=== PATIENT | female | born 1970 | race African-American/Black ===

== ENCOUNTER 2022-09-06 15:22 | Observation (INO) | payer OTHER ==
[2022-09-06] MEDS ORDERED: ONDANSETRON 4 MG/2 ML VIAL ONE (16:05)
[2022-09-06] MEDS ORDERED: MORPHINE 2 MG/ML SYR ONE (16:05)
[2022-09-06 16:15] LABS: Absolute Lymphocytes (CBC) 1.3 K/uL (0.7-4.9); Hematocrit 40.7 % (36.0-45.0); Lymphocytes % 16.6 % (15.3-44.8); MCV 81.7 fL (80-100); RBC Red Blood Cell Count 4.99 M/uL (3.86-4.86)
[2022-09-06 16:20] LABS: Urine Blood Negative (Negative); Urine Glucose Negative (Negative); Urine Protein Negative (Negative)
--- NOTE | 2022-09-06 16:22 | RAD REPORT ---
EXAM DESCRIPTION: Ksenia Single View09/06/2022 4:15 pm CLINICAL HISTORY: Chest pain COMPARISON: none FINDINGS: The lungs appear clear of acute infiltrate. The heart is normal size IMPRESSION: No acute abnormalities displayed
[2022-09-06 16:31] LABS: Protime INR 5.82
[2022-09-06 16:44] LABS: ALT/SGPT 29 U/L (12-78); AST/SGOT 16 U/L (15-37); Albumin 3.1 g/dL (3.4-5.0); Alkaline Phosphatase 84 U/L (45-117); BUN Blood Urea Nitrogen 11 mg/dL (7-18); Bicarbonate 25 mmol/L (21-32); Bilirubin Total 0.5 mg/dL (0.2-1.0); Glomerular Filtration Rate 83 ml/min (=/>90); Glucose Level 177 mg/dL (74-106); NT PRO-BNP 73 pg/mL (<125); Potassium 4.2 mmol/L (3.5-5.1); Protein, Total 7.4 g/dL (6.4-8.2); Sodium Level 138 mmol/L (136-145); Troponin High Sensitivity 4.9 pg/mL (<58.9)
[2022-09-06 16:49] LABS: Bilirubin Direct < 0.1 mg/dL (0-0.2)
--- NOTE | 2022-09-06 19:02 | RAD REPORT ---
EXAM DESCRIPTION: CT - Head Brain Wo Cont - 09/06/2022 6:33 pm CLINICAL HISTORY: Headache COMPARISON: None. TECHNIQUE: Computed axial tomography of the head was obtained. IV contrast was not requested. All CT scans are performed using dose optimization technique as appropriate and may include automated exposure control or mA/KV adjustment according to patient size. FINDINGS: An intracranial bleed is not seen . The ventricles are normal in caliber. No significant hypodense areas within the brain visualized No extra-axial fluid collection is noted. Fluid within the sinuses/ mastoids is not seen. IMPRESSION: No acute intracranial abnormality is seen. If patient's symptoms persist MRI of the bra in would be recommended.
--- NOTE | 2022-09-06 19:06 | RAD REPORT ---
EXAM DESCRIPTION: CT - Chest For Pe Angio - 09/06/2022 6:33 pm CLINICAL HISTORY: Chest pain COMPARISON: None. TECHNIQUE: Dynamically enhanced axial 3 mm thick images of the chest were obtained during administra tion of <100> mL Isovue 370 IV contrast. Coronal and oblique reconstruction images were generated and reviewed. Exam utilizes a protocol for optimal evaluation of pulmonary arterial tree. Maximum intensity projections 3D imaging was utilized All CT scans are performed using dose optimization technique as appropriate and may include automated exposure control or mA/KV adjustment according to patient size. FINDINGS: A pulmonary embolus is not seen. A thoracic aortic aneurysm is not noted. A pleural effusion is not seen. A pericardial effusion is not seen. A lung consolidation is not present. IMPRESSION: Negative for a pulmonary embolism.
--- NOTE | 2022-09-06 19:40 | ER ---
Nurse's Notes [facility] Name: Brian Donato Age: 52 yrs Sex: Female : 1970 Arrival Date: 09/06/2022 Time: 15:31 Bed 23 Private MD: Diagnosis: Chest pain, unspecified;Palpitations Presentation: 09/06 15:31 Chief complaint: EMS states: Left sided chest pain, SOB, and palpitations that started hb while cooking 45 mins ago. Pain was partially relieved after Nitro SL x 1. ASA 324 mg administered SUSPECT ARTIST. Coronavirus screen: At this time, the client does not indicate any symptoms associated with coronavirus-19. Ebola Screen: No symptoms or risks identified at this time. Initial Sepsis Screen: Does the patient meet any 2 criteria? No. Patient's initial sepsis screen is negative. Does the patient have a suspected source of infection? No. Patient's initial sepsis screen is negative. Risk Assessment: Do you want to hurt yourself or someone else? Patient reports no desire to harm self or others. Onset of symptoms was September 06, 2022. 15:31 Method Of Arrival: EMS: [facility] hb 15:31 Acuity: ROX 3 hb Triage Assessment: 15:33 General: Appears in no apparent distress. Behavior is calm, cooperative. Pain: Pain hb currently is 6 out of 10 on a pain scale. EENT: No signs and/or symptoms were reported regarding the EENT system. Neuro: Level of Consciousness is awake, alert, obeys commands, Oriented to person, place, time, situation. Cardiovascular: Patient's skin is warm and dry. Respiratory: Respiratory effort is even, unlabored, Respiratory pattern is regular, symmetrical. GI: No signs and/or symptoms were reported involving the gastrointestinal system. : No signs and/or symptoms were reported regarding the genitourinary system. Derm: Skin is pink, warm \T\ dry. Musculoskeletal: No signs and/or symptoms reported regarding the musculoskeletal system. Historical: - Allergies: 15:33 No Known Allergies; hb - Immunization history:: Adult Immunizations up to date. - Social history:: Smoking status: Patient denies any tobacco usage or history of. Patient/guardian denies using alcohol, street drugs. Screenin:34 Abuse screen: Denies threats or abuse. Denies injuries from another. Nutritional hb screening: No deficits noted. Tuberculosis screening: No symptoms or risk factors identified. Fall Risk None identified. Assessment: 15:34 General: See triage assessment. hb 16:52 Reassessment: Patient appears in no apparent distress at this time. Patient and/or hb family updated on plan of care and expected duration. Pain level reassessed. Patient is alert, oriented x 3, equal unlabored respirations, skin warm/dry/pink. 17:59 Reassessment: Patient appears in no apparent distress at this time. Patient and/or hb family updated on plan of care and expected duration. Pain level reassessed. Patient is alert, oriented x 3, equal unlabored respirations, skin warm/dry/pink. 19:14 Reassessment: Patient appears in no apparent distress at this time. Patient and/or hb family updated on plan of care and expected duration. Pain level reassessed. Patient is alert, oriented x 3, equal unlabored respirations, skin warm/dry/pink. 19:40 Reassessment: Patient appears in no apparent distress at this time. Patient and/or hb family updated on plan of care and expected duration. Pain level reassessed. Patient is alert, oriented x 3, equal unlabored respirations, skin warm/dry/pink. Vital Signs: 15:31 BP 123 / 97; Pulse 81; Resp 16; Temp 97.8; Pulse Ox 100% on R/A; Weight 83.91 kg; hb Height 5 ft. 9 in. (175.26 cm); Pain 6/10; 16:30 BP 124 / 84; Pulse 83; Resp 16; Pulse Ox 99% ; hb 17:59 BP 125 / 65; Pulse 80; Resp 15; Pulse Ox 99% on R/A; hb 19:14 BP 125 / 94; Pulse 63; Resp 17; Pulse Ox 99% on R/A; Pain 4/10; hb 15:31 Body Mass Index 27.32 (83.91 kg, 175.26 cm) hb ED Course: 15:31 Patient arrived in ED. hb 15:31 Dee Cortes, RN is Primary Nurse. hb 15:33 Onesimo Banks PA is PHCP. cp 15:33 Onesimo Hutchison MD is Attending Physician. cp 15:33 Triage completed. hb 15:34 Arm band placed on. hb 15:34 Patient has correct armband on for positive identification. hb 16:05 Maintain EMS IV. Dressing intact. Site clean \T\ dry. Gauge \T\ site: 20g LAC. no blood hb return, flushes easily . 16:14 Initial lab(s) drawn, by me, sent to lab. hb 16:17 XRAY Chest (1 view) In Process Unspecified. EDMS 17:53 LAB Add On Sent. hb 18:35 CT Chest For PE Angio In Process Unspecified. EDMS 18:35 CT Head Brain wo Cont In Process Unspecified. EDMS 19:38 Rebel Estrella is Hospitalizing Provider. cp 20:12 US Extremity Venous W Compression Alessandro In Process Unspecified. EDMS 23:17 No provider procedures requiring assistance completed. Patient admitted, IV remains in vc1 place. Administered Medications: 16:14 Drug: Zofran (Ondansetron) 4 mg Route: IVP; Site: left antecubital; hb 17:00 Follow up: Response: No adverse reaction hb 16:14 Drug: morphine 2 mg Route: IVP; Infused Over: 4 mins; Site: left antecubital; hb 17:00 Follow up: Response: No adverse reaction hb Medication: 15:34 VIS not applicable for this client. hb Outcome: 19:39 Decision to Hospitalize by Provider. cp 23:18 Admitted to Tele [facility] via [facility], room 421, with chart. vc1 23:18 Condition: good 23:18 Instructed on the need for admit. 23:18 Patient left the ED. vc1 Signatures: Dispatcher [employer] EDDC Onesimo Banks PA PA cp Baxter, Heather, RN RN hb Sulema Andrews RN RN vc1 Corrections: (The following items were deleted from the chart) 15:33 15:33 Allergies: Aspirin; hb hb 19:17 19:14 BP 122 / 68; Pulse 63bpm; Resp 17bpm; Pulse Ox 99% RA; Pain 4/10; hb hb 19:40 19:40 Reassessment: Patient appears in no apparent distress at this time. hb hb
--- NOTE | 2022-09-06 19:40 | EDPHYS ---
Physician Documentation [facility] Name: Brian Donato Age: 52 yrs Sex: Female : 1970 Arrival Date: 09/06/2022 Time: 15:31 Bed 23 Private MD: ED Physician Onesimo Hutchison HPI: 09/06 15:39 This 52 yrs old Female presents to ER via EMS with complaints of Chest Pain, cp Palpitations. 15:39 The patient or guardian reports chest pain that is located primarily in the anterior cp chest wall, left. 15:39 Onset: today. The patient presents with a history of heart racing. Context: The cp symptoms occur with light activity, while cooking. Onset: The symptoms/episode began/occurred today, less than 1 hour ago. Duration: The patient or guardian reports a single episode, that is still ongoing, but improving. The pain does not radiate. 15:39 Associated signs and symptoms: Pertinent negatives: cough, fever, lightheadedness, SOB, cp syncope, unusual stressors. The chest pain is described as sharp. 15:40 Patient given sublingual nitro and ASA by EMS with improvement of pain. cp Historical: - Allergies: 15:33 No Known Allergies; hb - Immunization history:: Adult Immunizations up to date. - Social history:: Smoking status: Patient denies any tobacco usage or history of. Patient/guardian denies using alcohol, street drugs. ROS: 15:45 Constitutional: Negative for body aches, chills, fever, poor PO intake. cp 15:45 Eyes: Negative for injury, pain, redness, and discharge. cp 15:45 ENT: Negative for drainage from ear(s), ear pain, sore throat, difficulty swallowing, difficulty handling secretions. 15:45 Cardiovascular: Positive for chest pain, palpitations, Negative for edema. 15:45 Respiratory: Negative for cough, shortness of breath, wheezing. 15:45 Abdomen/GI: Positive for nausea, Negative for abdominal pain, vomiting, diarrhea, constipation. 15:45 Neuro: Positive for dizziness, Negative for altered mental status, weakness. Exam: 15:50 Constitutional: The patient appears in no acute distress, alert, awake, cp non-diaphoretic, non-toxic, well developed, well nourished. 15:50 Head/Face: Normocephalic, atraumatic. cp 15:50 Eyes: Periorbital structures: appear normal, Pupils: equal, round, and reactive to light and accomodation, Extraocular movements: intact throughout, Conjunctiva: normal, no exudate, no injection, Sclera: no appreciated abnormality, Lids and lashes: appear normal, bilaterally. 15:50 ENT: External ear(s): are unremarkable, Nose: is normal, Mouth: Lips: moist, Oral mucosa: pink and intact, moist, Posterior pharynx: Airway: no evidence of obstruction, patent. 15:50 Neck: ROM/movement: is normal, is supple, without pain, no range of motions limitations, no nuchal rigidity. 15:50 Chest/axilla: Inspection: normal. 15:50 Cardiovascular: Rate: normal, Rhythm: regular, Edema: is not appreciated, JVD: is not appreciated. 15:50 Respiratory: the patient does not display signs of respiratory distress, Respirations: normal, no use of accessory muscles, no retractions, labored breathing, is not present, Breath sounds: are clear throughout, no decreased breath sounds, no stridor, no wheezing. 15:50 Abdomen/GI: Inspection: abdomen appears normal, Bowel sounds: active, all quadrants, Palpation: abdomen is soft and non-tender, in all quadrants. 15:50 Back: pain, is absent, ROM is normal. 15:50 Neuro: Orientation: to person, place \T\ time. Mentation: is normal, Cerebellar function: is grossly normal, Motor: moves all fours, strength is normal, Sensation: is normal. 16:22 ECG was reviewed by the Attending Physician. cp Vital Signs: 15:31 BP 123 / 97; Pulse 81; Resp 16; Temp 97.8; Pulse Ox 100% on R/A; Weight 83.91 kg; hb Height 5 ft. 9 in. (175.26 cm); Pain 6/10; 16:30 BP 124 / 84; Pulse 83; Resp 16; Pulse Ox 99% ; hb 17:59 BP 125 / 65; Pulse 80; Resp 15; Pulse Ox 99% on R/A; hb 19:14 BP 125 / 94; Pulse 63; Resp 17; Pulse Ox 99% on R/A; Pain 4/10; hb 15:31 Body Mass Index 27.32 (83.91 kg, 175.26 cm) hb MDM: 15:35 Patient medically screened. khadra 20:00 The patient was not given aspirin in the Emergency Department. Administered by EMS. cp 20:00 Data reviewed: vital signs, nurses notes, lab test result(s), EKG, radiologic studies, cp CT scan, plain films. Test interpretation: by ED physician or midlevel provider: ECG, plain radiologic studies. Physician consultation: Raisaandrez Masters PA-C was called at 19:30, was contacted at 19:30, regarding admission, to the telemetry unit. patient's condition. 09/06 15:40 Order name: Basic Metabolic Panel; Complete Time: 16:56 cp 09/06 16:56 Interpretation: Normal except: GLUC 177; GFR 83; CA 8.1. cp 09/06 15:40 Order name: CBC with Diff; Complete Time: 16:37 cp 09/06 16:42 Interpretation: Normal except: RBC 4.99; MARTIN% 76.6. cp 09/06 15:40 Order name: LFT's; Complete Time: 16:56 cp 09/06 16:56 Interpretation: Normal except: ALB 3.1; GLOB 4.3; A/G 0.7. cp 09/06 15:40 Order name: Magnesium; Complete Time: 16:56 cp 09/06 15:40 Order name: NT PRO-BNP; Complete Time: 16:56 cp 09/06 15:40 Order name: PT-INR; Complete Time: 16:37 cp 09/06 16:38 Interpretation: Reviewed. cp 09/06 15:40 Order name: Troponin HS; Complete Time: 16:56 cp 09/06 16:20 Order name: Urine Dipstick-Ancillary; Complete Time: 16:37 EDMS 09/06 16:23 Order name: Urine --Ancillary (enter results); Complete Time: 19:08 em1 09/06 16:58 Order name: LAB Add On cp 09/06 16:58 Order name: D-Dimer; Complete Time: 17:16 cp 09/06 17:16 Interpretation: Abnormal: D-DIMER 978. cp 09/06 18:42 Order name: PT-INR: repeat; Complete Time: 20:23 cp 09/06 18:42 Order name: AMMONIA; Complete Time: 20:23 cp 09/06 19:25 Order name: Troponin High Sensitivity; Complete Time: 20:43 cp 09/06 15:40 Order name: XRAY Chest (1 view); Complete Time: 16:37 cp 09/06 15:40 Order name: EKG; Complete Time: 15:41 cp 09/06 15:40 Order name: Cardiac monitoring; Complete Time: 16:01 cp 09/06 15:40 Order name: EKG - Nurse/Tech; Complete Time: 16:19 cp 09/06 15:40 Order name: IV Saline Lock; Complete Time: 16:01 cp 09/06 15:40 Order name: Labs collected and sent; Complete Time: 16:01 cp 09/06 15:40 Order name: O2 Per Protocol; Complete Time: 16:01 cp 09/06 15:40 Order name: O2 Sat Monitoring; Complete Time: 16:01 09/06 15:40 Order name: Urine Dipstick-Ancillary (obtain specimen); Complete Time: 16:19 cp 09/06 15:40 Order name: Urine Test (obtain specimen); Complete Time: 16:19 cp 09/06 17:16 Order name: CT Chest For PE Angio; Complete Time: 19:08 cp 09/06 19:09 Interpretation: Report reviewed. 09/06 17:16 Order name: CT Head Brain wo Cont; Complete Time: 19:08 09/06 19:09 Interpretation: Report reviewed. 09/06 19:30 Order name: US Extremity Venous W Compression Alessandro; Complete Time: 20:43 cp 09/06 20:21 Order name: SARS RAPID; Complete Time: 21:53 sb4 EC:22 Rate is 77 beats/min. Rhythm is regular. [place] interval is normal. QRS interval is normal. cp QT interval is normal. T waves are Inverted in lead aVR. Interpreted by me. Reviewed by me. Administered Medications: 16:14 Drug: Zofran (Ondansetron) 4 mg Route: IVP; Site: left antecubital; hb 17:00 Follow up: Response: No adverse reaction hb 16:14 Drug: morphine 2 mg Route: IVP; Infused Over: 4 mins; Site: left antecubital; hb 17:00 Follow up: Response: No adverse reaction hb Disposition Summary: 09/06/22 19:39 Hospitalization Ordered Hospitalization Status: Observation cp Provider: Rebel Estrella cp Location: Telemetry/MedSurg (observation) cp Condition: Stable cp Problem: new cp Symptoms: have improved cp Bed/Room Type: Standard cp Room Assignment: 421(09/06/22 21:53) bb Diagnosis - Chest pain, unspecified cp - Palpitations cp Forms: - Medication Reconciliation Form cp - SBAR form cp Addendum: 09/11/2022 04:04 Co-signature as Attending Physician, Onesimo Hutchison MD I agree with the assessment and c yan plan of care. Signatures: Dispatcher [employer] EDAL Onesimo Hutchison MD MD cha Ballard, Brenda, RN RN bb Onesimo Banks PA PA cp Baxter, Heather, RN RN Raisa Maya PA-C PA-C sb4 Corrections: (The following items were deleted from the chart) 09/06 15:33 15:33 Allergies: Aspirin; hb hb 16:56 16:56 Normal except: GLUC 177; GFR 83. cp cp 21:53 19:39 cp bb 09/07 18:17 09/06 15:39 Context: The symptoms occur at rest, cp cp 09/07 18:17 09/06 15:39 Onset: The symptoms/episode began/occurred today, cp cp 09/07 18:20 09/06 20:00 Physician consultation: Raisa Masters PA-C was called at 19:55, was cp contacted at 19:55, regarding admission, to the telemetry unit. patient's condition, cp
[2022-09-06 20:03] LABS: Protime INR 0.98
--- NOTE | 2022-09-06 20:24 | RAD REPORT ---
EXAM DESCRIPTION: USExtrem Venous W Compress Bil09/06/2022 8:10 pm CLINICAL HISTORY: Leg pain COMPARISON: none FINDINGS: The common femoral, superficial femoral, popliteal and posterior tibial veins bilaterally are compressible and demonstrate augmentation. Doppler demonstrates good flow. Grayscale, color and spectral analysis performed on all vessels IMPRESSION: No evidence of deep venous thrombosis involving either lower extremity.
--- NOTE | 2022-09-06 20:43 | P.HP ---
Certification for Inpatient Patient admitted to: Observation With expected LOS: <2 Midnights Patient will require the following post-hospital care: None Practitioner: I am a practitioner with admitting privileges, knowledge of patient current condition, hospital course, and medical plan of care. Services: Services provided to patient in accordance with Admission requirements found in Title 42 Section 412.3 of the Code of Federal Regulations Patient History Date of Service: 09/06/22 Reason for admission: Chest Pain History of Present Illness: Patient is a 52-year-old female with history of hypertension and occassional palpitations who presented to the ED with complaints of chest pain, palpitations, and dizziness that began about 1 hour prior to arrival. Patient reports that she was cooking dinner when she noticed her chest started to hurt under her left breast and started experiencing palpitations and felt very overheated. He took her metoprolol which did not improve her symptoms. She was taken to the hospital via EMS, who gave her aspirin and nitro in route. Symptoms were moderately improved upon arrival to the ED. 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 Labs within normal limits except for a D-dimer of 978. Troponin and 4 hour repeat WNL. EKG showed NSR. Ultrasound negative for DVT and chest CT angio negative for PE. ED provider wishes to admit patient for observation for ACS rule out. Allergies No Known Allergies Allergy (Unverified 09/06/22 20:31) Home medications list reviewed: Yes - Past Medical/Surgical History Diabetic: No -: Hypertension -: Palpitations -: Chronic back pain -: -: Right shoulder Psychosocial/ Personal History: Patient is . Lives at home with her . - Family History Father -: Heart disease, Diabetes - Social History Smoking Status: Never smoker Alcohol use: Yes CD- Drugs: No Caffeine use: Yes Place of Residence: Home Review of Systems General: Sweats Cardiovascular: Chest Pain, Palpitations, Light Headedness Musculoskeletal: Arm Pain Physical Examination - Physical Exam General: Alert, In no apparent distress HEENT: Atraumatic, PERRLA, EOMI, Sclerae nonicteric Neck: Supple, 2+ carotid pulse no bruit, No LAD, Without JVD or thyroid abn ormality Respiratory: Clear to auscultation bilaterally, Normal air movement Cardiovascular: Regular rate/rhythm, Normal S1 S2 Gastrointestinal: Normal bowel sounds, No tenderness Musculoskeletal: No tenderness Integumentary: No rashes Neurological: Normal speech, Normal strength at 5/5 x4 extr, Normal tone, Normal affect - Studies Laboratory Data (last 24 hrs) 09/06/22 19:50: PT 10.8, INR 0.98 09/06/22 16:00: PT 64.0 H, INR 5.82 H* 09/06/22 16:00: WBC 7.60, Hgb 13.5, Hct 40.7, Plt Count 153 09/06/22 16:00: Sodium 138, Potassium 4.2, BUN 11, Creatinine 0.84, Glucose 177 H, Magnesium 2.0, Total Bilirubin 0.5, AST 16, ALT 29, Alkaline Phosphatase 84 Assessment and Plan - Problems (Diagnosis) (1) Chest pain Current Visit: Yes Status: Acute Qualifiers: Chest pain type: unspecified Qualified Code(s): R07.9 - Chest pain, unspecified (2) Hypertension Current Visit: Yes Status: Chronic (3) Elevated d-dimer Current Visit: Yes Status: Acute - Plan -2 initial troponins negative. Will check 1 more -Cardiology consult. Monitor on telemetry -Aspirin and atorvastatin daily -Lipid panel, TSH, and A1C ordered for morning (no history of diabetes but BS elevated and +family history) -Monitor and replete electrolytes per protocol -Reconcile and continue home medications -Lovenox for VTE prophylaxis -Full code Discharge Plan: Home Plan to discharge in: 24 Hours - Advance Directives Does patient have a Living Will: No Does patient have a Durable POA for Healthcare: No - Code Status/Comfort Care Code Status Assessed: Yes (Full) Critical Care: No Time Spent Managing Pts Care (In Minutes): 50
[2022-09-06] MEDS ORDERED: NITROGLYCERIN 0.4 MG/TAB SL PRN (20:47)
[2022-09-06] MEDS ORDERED: ACETAMINOPHEN 500 MG TAB PO PRN (20:47)
[2022-09-06] MEDS ORDERED: ONDANSETRON 4 MG/2 ML VIAL IV PRN (20:47)
[2022-09-06 20:50] VITALS: BMI 27.3
[2022-09-06] MEDS ORDERED: ATORVASTATIN 40 MG TAB PO SCH (21:00)
[2022-09-06 21:48] LABS: SARS-CoV-2 Antigen Rapid Res Negative (Negative)
[2022-09-06] MEDS ORDERED: ATORVASTATIN 20 MG TAB ONE (22:26)
[2022-09-06] MEDS ORDERED: ACETAMINOPHEN 500 MG TAB ONE (22:26)
[2022-09-07 04:50] LABS: Absolute Lymphocytes (CBC) 1.9 K/uL (0.7-4.9); Hematocrit 37.7 % (36.0-45.0); Lymphocytes % 25.3 % (15.3-44.8); MCV 82.6 fL (80-100); MPV 10.2 fL (7.6-11.3); RBC Red Blood Cell Count 4.57 M/uL (3.86-4.86)
[2022-09-07 05:15] LABS: Magnesium 2.2 mg/dL (1.8-2.4); Phosphorus 4.3 mg/dL (2.5-4.9); Thyroid Stimulating Hormone 0.704 uIU/mL (0.360-3.740); Troponin High Sensitivity 5.8 pg/mL (<58.9)
[2022-09-07 08:21] VITALS: BP 110/79; TEMP 97.6; O2SAT 100
[2022-09-07] MEDS ORDERED: ENOXAPARIN 40 MG/0.4 ML SQ SCH (09:00)
[2022-09-07] MEDS ORDERED: ASPIRIN EC 81 MG TAB PO SCH (09:00)
--- NOTE | 2022-09-07 10:24 | P.DS ---
Admission Date: 09/06/22 Discharge Date: 09/07/22 Disposition: ROUTINE DISCHARGE Discharge Condition: FAIR Reason for Admission: Chest Pain - Problems (1) Chest pain Current Visit: Yes Status: Acute Qualifiers: Chest pain type: unspecified Qualified Code(s): R07.9 - Chest pain, unspecified (2) Elevated d-dimer Current Visit: Yes Status: Acute (3) Hypertension Current Visit: Yes Status: Chronic Brief History of Present Illness: Patient is a 52-year-old female with history of hypertension and occassional palpitations who presented to the ED with complaints of chest pain, palpitations, and dizziness that began about 1 hour prior to arrival. Patient reports that she was cooking dinner when she noticed her chest started to hurt under her left breast and started experiencing palpitations and felt very overheated. He took her metoprolol which did not improve her symptoms. She was taken to the hospital via EMS, who gave her aspirin and nitro in route. Symptoms were moderately improved upon arrival to the ED. 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 Labs within normal limits except for a D-dimer of 978. Troponin and 4 hour repeat WNL. EKG showed NSR. Ultrasound negative for DVT and chest CT angio negative for PE. She was placed under observation for ACS rule out. Hospital Course: Troponin trended negative. Patient was asymptomatic during the hospital stay. ACS ruled out. She was seen by cardiology-Dr. Antonio for follow-up with her as outpatient for arrangement for stress test. Vitals are stable. Total cholesterol and LDL moderately elevated. Discussed exercise and diet modification and recommended aspirin daily. Vital Signs/Physical Exam: Temp Pulse Resp BP Pulse Ox 97.6 F 86 16 110/79 100 09/07/22 08:00 09/07/22 08:00 09/07/22 08:00 09/07/22 08:00 09/07/22 08:00 General: Alert, In no apparent distress, Oriented x3 Neck: Supple, JVD not distended Respiratory: Clear to auscultation bilaterally, Normal air movement Cardiovascular: No edema, Regular rate/rhythm, Normal S1 S2 Gastrointestinal: Soft and benign Musculoskeletal: No swelling Integumentary: No rashes Neurological: Normal strength at 5/5 x4 extr Laboratory Data at Discharge: WBC 7.70 K/uL (4.3-10.9) 09/07/22 03:38 Hgb 12.5 g/dL (12.0-15.0) 09/07/22 03:38 Hct 37.7 % (36.0-45.0) 09/07/22 03:38 Plt Count 138 K/uL (152-406) L 09/07/22 03:38 PT 10.8 SECONDS (9.5-12.5) 09/06/22 19:50 INR 0.98 09/06/22 19:50 Sodium 139 mmol/L (136-145) 09/07/22 03:35 Potassium 4.0 mmol/L (3.5-5.1) 09/07/22 03:35 BUN 14 mg/dL (7-18) 09/07/22 03:35 Creatinine 0.83 mg/dL (0.55-1.3) 09/07/22 03:35 Glucose 105 mg/dL (74-106) 09/07/22 03:35 Phosphorus 4.3 mg/dL (2.5-4.9) 09/07/22 03:35 Magnesium 2.2 mg/dL (1.8-2.4) 09/07/22 03:35 Total Bilirubin 0.5 mg/dL (0.2-1.0) 09/06/22 16:00 AST 16 U/L (15-37) 09/06/22 16:00 ALT 29 U/L (12-78) 09/06/22 16:00 Alkaline Phosphatase 84 U/L (45-117) 09/06/22 16:00 Triglycerides 266 mg/dL (<150) H 09/07/22 03:35 Cholesterol 240 mg/dL (<200) H 09/07/22 03:35 HDL Cholesterol 59 mg/dL (40-60) 09/07/22 03:35 Cholesterol/HDL Ratio 4.07 09/07/22 03:35 Home Medications: Clonidine HCl [Clonidine HCl ER] 1 tab PO DAILY 09/06/22 Metoprolol Succinate [Toprol Xl*] 1 tab PO BID 09/06/22 Aspirin [Aspirin EC 81 MG] 81 mg PO DAILY #30 tab 09/07/22 New Medications: Aspirin [Aspirin EC 81 MG] 81 mg PO DAILY #30 tab Followup: NONE,NONE [Primary Care Provider] -
--- NOTE | 2022-09-07 20:35 | CON ---
Date of Consultation: 09/07/2022 Reason For Consultation: Chest pain. History Of Present Illness: This 52-year-old female with history of hypertension and palpitations pr esented to the emergency room complaining of chest pain along with palpitations. When palpitations h appen, she feels dizzy and started having chest pain, sharp. The patient reported that just after di nner, having pain under the left breast and then started to move into the right breast. No radiation . Not related to exertion. No nausea, vomiting, or diarrhea. No dysuria, polyuria, or urinary urge ncy. A D-dimer was elevated. CTA for PE was negative. She was admitted to rule out acute coronary syndrome. The patient is feeling better. No left-sided chest pain this morning. Past Medical History: As outlined above in HPI. Medications: Refer to reconciliation sheet for detailed list. Allergies: NO KNOWN DRUG ALLERGIES. Family History: No premature coronary artery disease or cancer. Social History: Does not smoke or drink. Does not use any drugs. Review of Systems: All systems reviewed and were negative except for what is mentioned HPI. Physical Examination: Vital Signs: Temperature is 97.6, pulse 86, breathing at 16, blood pressure 110/79, saturating 100% on room air. General: A pleasant middle-aged female, in no apparent distress. Head And Neck: Pupils are equal and reactive to light. Intact eye movements. No JVD. No cervical lymphadenopathy. Neck: Supple. Thyroid is not enlarged. Lungs: Clear to auscultation bilaterally. No rhonchi, wheezing, or crackles. No accessory muscle u se. Heart: Irregular. No extra sounds. Abdomen: Soft, nontender. Bowel sounds positive. No organomegaly. No masses or hernia. No rigidi ty or rebound. Extremities: No clubbing or cyanosis. Intact pulses. Skin: No rash. Neurologic: Alert, awake, and oriented x3. No acute focal deficits appreciated. Investigations: BUN 14, creatinine 0.83. Troponin x3 are negative. LDL is 128, HDL is 59. Hemoglo bin is 12.5. D-dimer was 978. CTA PE protocol was negative for PE. Assessment And Recommendations: 1.Chest pain. It is atypical. Cardiac enzymes are negative. No further inpatient cardiac workup i s recommended. Patient can be released and follow up as an outpatient. Obtain an exercise stress te st and an echocardiogram. 2.History of atrial fibrillation, appears to be controlled. Continue current medications. SR/MODL Voice ID: [id number] Report ID: [id number]
--- NOTE | 2022-09-08 16:57 | EKG ---
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
== END 2022-09-07 10:45 | disposition home or self-care (01) ==
LOC: ER 15:22 → ERHOLD 20:45 → 4TH 22:21
PROVIDERS: ADMIT Internal Medicine; ATTEND Internal Medicine
DX: R07.9 Chest pain, unspecified (principal); I10 Essential (primary) hypertension; R79.1 Abnormal coagulation profile; I48.91 Unspecified atrial fibrillation; Z82.49 Family history of ischemic heart disease and other diseases of the circulatory system; Z20.822 Contact with and (suspected) exposure to COVID-19
CPT/HCPCS: 93005; 85025 ×2; 80048 ×2; 36415; 82140; 83735 ×2; 81025; 84100; 85610 ×2; 80061; 85379; 80076; 84443; 81003; 83036; 84484 ×3; 83880; 70450; 71275; 71045; 93970; 96375; 96374; 99285; 87811; Q9967; J1650; J2270; J2405; G0378 ×3